=== PATIENT | female | born 1995 | race American Indian/Alaskan Native ===

== ENCOUNTER 2021-04-08 04:56 | Emergency (ER) | payer SELFPAY ==
[2021-04-08 05:01] VITALS: BP 121/66
[2021-04-08] MEDS ORDERED: predniSONE 20 MG TAB PO ONE (05:11)
[2021-04-08] MEDS ORDERED: diphenhydrAMINE 25 MG CAP PO ONE (05:11)
[2021-04-08] MEDS ORDERED: FAMOTIDINE 20 MG TAB PO ONE (05:11)
--- NOTE | 2021-04-08 05:13 | Event Note ---
ED Screening Note Date of service: 04/08/21 Time: 05:12 ED Screening Note: Patient 24-year-old female who woke up with lip swelling. States she ate some shrimp pasta last night. Patient denies allergic reaction strep positive in the past. Patient states she also took ibuprofen last night. There is no shortness of breath no wheezing no stridor no nausea or vomiting no drooling. There is minimal tongue and lip swelling. Patient is not on an EJ inhibitor. This initial assessment/diagnostic orders/clinical plan/treatment(s) is/are subject to change based on patients health status, clinical progression and re- assessment by fellow clinical providers in the ED. Further treatment and workup at subsequent clinical providers discretion. Patient/guardian urged not to elope from the ED as their condition may be serious if not clinically assessed and managed. Airway is patent patient is tolerating p.o. intake at this time. Initial orders include: prednisone, benadryl, pepcid
--- NOTE | 2021-04-08 07:29 | Event Note ---
I went to evaluate patient and was told that she left ama
== END 2021-04-08 07:16 | disposition left against medical advice (07) ==
LOC: ED 04:56
DX: T78.40XA Allergy, unspecified, initial encounter (principal); Z53.21 Procedure and treatment not carried out due to patient leaving prior to being seen by health care provider; X58.XXXA Exposure to other specified factors, initial encounter
CPT/HCPCS: 99282; J7512